=== PATIENT | female | born 1990 | race African-American/Black ===

== ENCOUNTER 2017-12-21 19:10 | Inpatient (IN) | payer OTHER ==
[2017-12-21] MEDS ORDERED: Dinoprostone* 10 MG VAG.SUPP VAGINAL ONE (19:47)
[2017-12-22 10:07] LABS: ABS Basophils 0 10^3/ul (0-0.2); ABS Eosinophils 0.1 10^3/ul (0-0.6); ABS Lymphocytes 1.8 10^3/ul (1.0-4.8); ABS Monocytes 0.7 10^3/ul (0-0.8); ABS Neutrophils 7.6 10^3/ul (1.5-7.7); ABS Nucleated RBC 0 10^3/ul; Eosinophil % 0.8 % (0-6); Hematocrit 35 % (35-47); Hemoglobin 11.6 g/dl (12.0-16.0); Lymphocyte % 17.8 % (25-47); Mean Corpuscular HGB Conc 34 g/dl (31-36); Mean Corpuscular Hemoglobin 31 pg (27-31); Mean Corpuscular Volume 93 fL (80-97); Mean Platelet Volume 10 um3 (7.4-10.4); Nucleated Red Blood Cells % 0.1; Platelet Count 173 10^3/ul (150-450); Red Cell Distribution Width 14 % (10.5-15); White Blood Count 10.2 10^3/ul (3.5-10.8)
[2017-12-22] MEDS ORDERED: Oxytocin in LR* 20 UNITS/1,000 ML BAG IVPB SCH (13:00)
[2017-12-22] MEDS ORDERED: Promethazine INJ(RESTRICTED)* 25 MG/ML 1 ML VIAL IV ONE (13:01)
[2017-12-22] MEDS ORDERED: Nalbuphine* 20 MG/ML 1 ML VIAL IV ONE (13:01)
[2017-12-22] MEDS ORDERED: Misoprostol TAB* 100 MCG PO ONE (18:00)
[2017-12-22] MEDS ORDERED: OBEPIDURAL* 250 ML EPIDURAL ONE (22:20)
[2017-12-22] MEDS ORDERED: Phenylephrine IV* 40 MCG/ML 10 ML SYRINGE IV PUSH PRN ×2 (23:27)
[2017-12-22] MEDS ORDERED: Sodium Citrate/Citric Acid* 15 ML UDC PO PRN (23:27)
[2017-12-22] MEDS ORDERED: OBEPIDURAL* 250 ML EPIDURAL SCH (23:45)
[2017-12-23] MEDS ORDERED: Varicella Virus Vaccine Live* 0.5 ML VIAL SUBCUT ONE (05:37)
[2017-12-23] MEDS ORDERED: Acetaminophen TAB* 325 MG PO PRN (05:37)
[2017-12-23] MEDS ORDERED: Tetan/Diph/Pertus SYR(Tdap)* 0.5 ML SYR(BOOSTRIX) use SYR IM ONE (05:37)
[2017-12-23] MEDS ORDERED: Methylergonovine INJ* 0.2 MG/ML 1ML AMP IM ONE (05:37)
[2017-12-23] MEDS ORDERED: Ibuprofen TAB* 600 MG ONE (05:49)
[2017-12-23] MEDS ORDERED: Oxytocin in LR* 20 UNITS/1,000 ML BAG IVPB SCH (06:00)
[2017-12-23] MEDS: Simethicone TAB* 80 MG TAB.CHEW PO SCH (09:26)
[2017-12-23] MEDS: Docusate CAP* 100 MG PO SCH ×3 (09:48→21:55)
[2017-12-23] MEDS: Ibuprofen TAB* 600 MG PO PRN ×2 (15:56→21:55)
--- NOTE | 2017-12-23 16:45 | PTEDU ---
Patient Name: AUGUSTA GONZALES AUGUSTA GONZALES selected video: Never Ever Shake a Baby to view on 12/23/2017 at 4:44:12 PM from [id number]
[2017-12-23] MEDS: Dibucaine 1% 28.35 GM TUBE PR PRN (19:57)
[2017-12-23] MEDS: Witch Hazel PAD* JAR TOPICAL PRN (19:58)
[2017-12-24] MEDS: Ibuprofen TAB* 600 MG PO PRN ×3 (04:58→18:24)
[2017-12-24 06:07] LABS: ABS Basophils 0 10^3/ul (0-0.2); ABS Eosinophils 0.2 10^3/ul (0-0.6); ABS Lymphocytes 3.4 10^3/ul (1.0-4.8); ABS Monocytes 1.2 10^3/ul (0-0.8); ABS Neutrophils 9.3 10^3/ul (1.5-7.7); ABS Nucleated RBC 0 10^3/ul; Eosinophil % 1.1 % (0-6); Hematocrit 30 % (35-47); Lymphocyte % 24.1 % (25-47); Mean Corpuscular HGB Conc 33 g/dl (31-36); Mean Corpuscular Hemoglobin 32 pg (27-31); Mean Corpuscular Volume 95 fL (80-97); Mean Platelet Volume 10 um3 (7.4-10.4); Nucleated Red Blood Cells % 0; Platelet Count 152 10^3/ul (150-450); Red Blood Count 3.17 10^6/ul (4.0-5.4); Red Cell Distribution Width 15 % (10.5-15); White Blood Count 14.1 10^3/ul (3.5-10.8)
[2017-12-24] MEDS: Simethicone TAB* 80 MG TAB.CHEW PO SCH ×2 (09:00→12:30)
[2017-12-24] MEDS ORDERED: Ferrous Gluconate TAB* 324 MG TAB PO SCH (09:00)
[2017-12-24] MEDS: Docusate CAP* 100 MG PO SCH ×3 (09:01→22:52)
--- NOTE | 2017-12-24 11:10 | PTEDU ---
Patient Name: AUGUSTA GONZALES AUGUSTA GONZALES selected video: Follow Me Mum: The Barlow to Successful to view on 12/24 at 11:09:21 AM from [email or web address]
--- NOTE | 2017-12-24 11:29 | PTEDU ---
Patient Name: AUGUSTA GONZALES AUGUSTA GONZALES selected video: BBOB: Nurturing Your Gorgeous &Growing Baby by to concepcion [email or web address] on 12/24/2017 at 11:28:47 AM from [email or web address]
[2017-12-24] MEDS: Witch Hazel PAD* JAR TOPICAL PRN (22:52)
[2017-12-24] MEDS: Dibucaine 1% 28.35 GM TUBE PR PRN (22:55)
--- NOTE | 2017-12-24 23:21 | PTEDU ---
Patient Name: AUGUSTA GONZALES AUGUSTA GONZALES selected video: BBOB: Bonding Through Massage to view on 12/24/2017 at 11:20 :59 PM from [email or web address]
[2017-12-25] MEDS: Ibuprofen TAB* 600 MG PO PRN ×2 (00:19→06:50)
[2017-12-25 08:50] VITALS: BP 93/52
[2017-12-25] MEDS: Docusate CAP* 100 MG PO SCH (12:41)
== END 2017-12-25 12:35 | disposition home or self-care (01) | DRG 560 ==
LOC: MCHOBOUT 19:10 → MCHOB 20:05
PROVIDERS: ADMIT Obstetrics & Gynecology; ATTEND Obstetrics & Gynecology
PROC: 10E0XZZ Delivery of Products of Conception, External Approach (ICD-10-PCS; principal; 2017-12-23)
PROC: 3E033VJ Introduction of Other Hormone into Peripheral Vein, Percutaneous Approach (ICD-10-PCS; 2017-12-23)
DX: O48.0 Post-term pregnancy (principal); Z37.0 Single live birth; Z3A.40 40 weeks gestation of pregnancy
CPT/HCPCS: 36415; 85025; 86850; 86900; 86901; A9270-GY; J2210; J2300; J2550; S0191